=== PATIENT | male | born 1970 | race Caucasian/White ===

== ENCOUNTER 2017-10-24 11:29 | Outpatient (CLI) | payer OTHER ==
--- NOTE | 2017-10-24 17:34 | XRAY Report ---
RIGHT HAND, THREE VIEWS: 10/24/2017 HISTORY: Question wood foreign body right thenar eminence. Splinter removed, hand now infected. FINDINGS: Three views of the right hand are interpreted without comparisons. There is no fracture, malalignment, periosteal reaction or bone destruction. In the area of clinical suspicion between the first and second fingers thenar eminence, no radiopaque foreign body or subcutaneous air is seen. Mild soft tissue swelling is present. IMPRESSION: NO RADIOPAQUE FOREIGN BODY IS IDENTIFIED. SOFT TISSUE SWELLING WITHOUT OTHER FINDING RIGHT HAND. TD: 10/24/2017 15:58 JOSE
== END 2017-10-24 11:30 | disposition home or self-care (01) ==
LOC: DI 11:29
PROVIDERS: ATTEND Specialist
DX: S60.551A Superficial foreign body of right hand, initial encounter (principal); R22.31 Localized swelling, mass and lump, right upper limb

== ENCOUNTER 2018-04-14 10:02 | Outpatient (CLI) | payer OTHER ==
[2018-04-14 18:19] LABS: BASOPHILS # (AUTO) 0.1 10^3/uL (0.0-0.1); BASOPHILS % (AUTO) 0.5 %; EOSINOPHILS % (AUTO) 0.2 %; HGB - HEMOGLOBIN 14.6 g/dL (14.0-18.0); LYMPHOCYTES # (AUTO) 1.9 10^3/uL (1.5-3.5); LYMPHOCYTES % (AUTO) 17.8 %; MEAN CORPUSCULAR HEMOGLOBIN 29.6 pg (27.0-31.0); MEAN CORPUSCULAR HGB CONC 33.1 g/dL (32.0-36.0); MEAN CORPUSCULAR VOLUME 89.4 fL (80.0-94.0); MONOCYTES # (AUTO) 0.8 10^3/uL (0.0-1.0); MONOCYTES % (AUTO) 7.2 %; NEUTROPHILS # (AUTO) 8.1 10^3/uL (1.5-6.6); NEUTROPHILS % (AUTO) 74.3 %; PLT - PLATELET COUNT 379 10^3/uL (130-450); RED BLOOD COUNT 4.93 10^6/uL (4.70-6.10); RED CELL DISTRIBUTION WIDTH 14.5 % (12.0-15.0); WHITE BLOOD COUNT 10.9 x10^3/uL (4.8-10.8)
[2018-04-14 18:29] LABS: ALBUMIN 3.6 g/dL (3.2-5.5); ALBUMIN/GLOBULIN RATIO 1.1 (1.0-2.2); ALKALINE PHOSPHATASE 89 IU/L (42-121); ALT ALANINE AMINOTRANSFERASE 68 IU/L (10-60); AST ASPARTATE AMINOTRANSFERASE 28 IU/L (10-42); BUN - BLOOD UREA NITROGEN 16 mg/dL (6-20); CALCIUM 8.7 mg/dL (8.5-10.3); CARBON DIOXIDE - CO2 24 mmol/L (21-32); CHLORIDE 102 mmol/L (101-111); CHOL/HDL RATIO 5.4 (<5.0); CHOLESTEROL 199 mg/dL; GFR - MDRD 79 (>89); GLUCOSE 112 mg/dL (70-100); HDL CHOLESTEROL 37 mg/dL; LDL CHOLESTEROL,CALCULATED 140 mg/dL; LDL/HDL RATIO 3.8 (<3.6); SODIUM 137 mmol/L (135-145); TOTAL PROTEIN 6.9 g/dL (6.7-8.2); VLDL CHOLESTEROL 22 mg/dL
== END 2018-04-14 10:03 | disposition home or self-care (01) ==
LOC: LAB.F 10:02
PROVIDERS: ATTEND Internal Medicine
DX: R00.0 Tachycardia, unspecified (principal)
CPT/HCPCS: 36415; 80053; 80061; 83721; 84443; 85025

== ENCOUNTER 2018-04-17 08:51 | Outpatient (CLI) | payer OTHER ==
--- NOTE | 2018-04-17 14:34 | XRAY Report ---
Reason: TACHYCARDIA, DYSPNEA ON EXERTION, ABNORMAL EKG Procedure Date: 04/17/2018 Accession Number: [id number] / [id number] Procedure: XR - Chest 2 View X-Ray CPT Code: 59332 FULL RESULT: EXAM: CHEST RADIOGRAPHY EXAM DATE: 04/17/2018 09:12 AM. CLINICAL HISTORY: TACHYCARDIA, DYSPNEA ON EXERTION, ABNORMAL EKG. COMPARISON: None. TECHNIQUE: 2 views. FINDINGS: Lungs/Pleura: Vascular congestion. Diffuse minimal interstitial opacities. No large effusion. No gross pneumothorax. Mediastinum: Mild to moderate cardiomegaly. No mediastinal shift. Other: None. IMPRESSION: Possible minimal CHF. RADIA
== END 2018-04-17 08:52 | disposition home or self-care (01) ==
LOC: DI 08:51
PROVIDERS: ATTEND Internal Medicine
DX: R06.09 Other forms of dyspnea (principal); R00.0 Tachycardia, unspecified; R94.31 Abnormal electrocardiogram [ECG] [EKG]; I51.7 Cardiomegaly; I34.0 Nonrheumatic mitral (valve) insufficiency; I51.3 Intracardiac thrombosis, not elsewhere classified
CPT/HCPCS: 71046; 93306

== ENCOUNTER 2018-04-22 05:23 | Emergency (ER) | payer OTHER ==
--- NOTE | 2018-04-22 05:41 | ED Physician Documentation ---
PD HPI FOCAL NEURO - Stated complaint Stated Complaint: SLURRED SPEECH,NAUSEA - Chief complaint Chief Complaint: Neuro - History obtained from History obtained from: Patient, Family - History of Present Illness Timing - onset: Enter time (04:00), Today Timing - details: Abrupt onset Time of symptom onset unknown: Time of onset unknown (see below) Severity of deficit: Mild Weakness: No: Face, Arm, Hand, Leg, Foot, Right, Left, Other Numbness: No: Face, Arm, Hand, Leg, Foot, Right, Left, Other Associated symptoms: No: Headache, Nausea / vomiting, Seizure, Syncope, Fall, Head injury, Chest pain, Neck pain, Back pain, Fever Contributing factors: positive: Anticoagulated Baseline status: positive: A&OX3, ambulatory, indep Similar symptoms before: Has not had sx before Recently seen: Clinic - Additional information Additional information: went to bed approximately 8 PM last night (this was last known normal time). He woke up approximately 4 AM. There was no apparent reason for waking up at that time; he did not feel abnormal in any way. However, when his then noted he was awake and talked to him, patient and both noted patient had slurred speech. says she was able to understand him and that what he was saying made sense, but his speech was definitively slurred. 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 Patient had been having fatigue with mild exertion over past several weeks, and this led to w/u last week in outpatient setting that included a markedly abnormal echocardiogram (EF <20%, large LV mural thrombus). He was thus started on xarelto, carvedilol, and lisinopril (04/17; he had previously not been on any medications and had no significant medical history), and he has his first appointment with cardiology scheduled for 04/24. 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 denies: Generalized weakness, Focal weakness, Numbness, Confused, Altered mental status, Headache PD PAST MEDICAL HISTORY - Past Medical History Past Medical History: Yes Cardiovascular: Hypertension - Past Surgical History Past Surgical History: No - Present Medications Home Medications: Ambulatory Orders Medication Instructions Recorded Confirmed Carvedilol 1 tab PO BID 04/22/18 04/22/18 Lisinopril 1 tab PO DAILY 04/22/18 04/22/18 Rivaroxaban [Xarelto] 20 mg PO DAILY 04/22/18 04/22/18 - Living Situation Living Situation: reports: With spouse/s.o. 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, No motor deficit, No sensory deficit, Normal speech Eye Opening: Spontaneous Motor: Obeys Commands Verbal: Oriented GCS Score: 15 NIHSS - Level of Consciousness Level of consciousness: (0) Alert, Keenly responsive LOC Questions: (0) Answers both Q's correct LOC Commands: (0) Performs both correctly - Gaze Best Gaze: (0) Normal - Visual Visual: (0) No loss - Facial Palsy Facial Palsy: (0) Normal, symmetrical movement - Motor Arms (both separate) Motor Arm (right): (0) No drift Motor Arm (left): (0) No drift - Motor Legs (both separate) Motor Leg (right): (0) No drift Motor Leg (left): (0) No drift - Limb Ataxia Limb Ataxia: (0) Absent - Sensory Sensory: (0) Normal - Best Language Best Language: (0) No aphasia - Dysarthria Dysarthria: (0) Normal - Extinction and Inattention (formally neg Extinction and inattention: (0) No abnormality - Total Score/Results Total Score/Result: 0 Results - Vitals Vitals: Vital Signs - 24 hr 04/22/18 04/22/18 04/22/18 05:25 07:43 08:44 Temperature 36.3 C L Heart Rate 106 H 84 80 Respiratory 14 18 16 Rate Blood Pressure 132/98 H 109/73 104/77 O2 Saturation 98 96 97 Oxygen O2 Source Room air - EKG (time done) No standard instances Rate: Rate (enter#) (93) Rhythm: NSR, LAE [place]: Normal Intervals: Normal LA QRS: Normal Ischemia: Normal ST segments, Q waves (V3-V6, I, aVL) - Labs Labs: Laboratory Tests 04/22/18 04/22/18 04/22/18 05:43 05:43 05:43 WBC 9.7 RBC 4.92 Hgb 14.4 Hct 43.7 MCV 88.9 MCH 29.3 MCHC 32.9 RDW 14.6 Plt Count 372 MPV 8.9 Neut # (Auto) 6.8 H Lymph # (Auto) 2.1 Bent # (Auto) 0.6 Eos # (Auto) 0.1 Baso # (Auto) 0.1 Absolute Nucleated RBC 0.00 Nucleated RBC % 0.0 PT 21.3 H INR 1.9 H APTT 34.5 H Sodium 133 L Potassium 4.0 Chloride 100 L Carbon Dioxide 23 Anion Gap 10.0 BUN 16 Creatinine 1.0 Estimated GFR (MDRD) 79 L Glucose 116 H Calcium 8.9 Total Bilirubin 1.1 H AST 25 ALT 52 Alkaline Phosphatase 84 Troponin I Total Protein 6.9 Albumin 3.7 Globulin 3.2 Albumin/Globulin Ratio 1.2 Lipase 26 04/22/18 04/22/18 05:43 07:55 WBC RBC Hgb Hct MCV MCH MCHC RDW Plt Count MPV Neut # (Auto) Lymph # (Auto) Bent # (Auto) Eos # (Auto) Baso # (Auto) Absolute Nucleated RBC Nucleated RBC % PT INR APTT Sodium Potassium Chloride Carbon Dioxide Anion Gap BUN Creatinine Estimated GFR (MDRD) Glucose Calcium Total Bilirubin AST ALT Alkaline Phosphatase Troponin I 0.21 0.20 Total Protein Albumin Globulin Albumin/Globulin Ratio Lipase - Rads (name of study) CT head Radiology: Prelim report reviewed, See rad report chest xray Radiology: Prelim report reviewed, See rad report PD MEDICAL DECISION MAKING - ED course Complexity details: reviewed old records, reviewed results, re-evaluated patient, considered differential, d/w patient, d/w family Departure - Departure Disposition: 01 Home, Self Care Clinical Impression: TIA (transient ischemic attack) Condition: Good Instructions: ED Transient Ischemic Attack Follow-Up: Morales Cabral MD [Primary Care Provider] - Discharge Date/Time: 04/22/18 08:46
[2018-04-22 05:57] LABS: BASOPHILS # (AUTO) 0.1 10^3/uL (0.0-0.1); BASOPHILS % (AUTO) 1.4 %; EOSINOPHILS # (AUTO) 0.1 10^3/uL (0.0-0.7); EOSINOPHILS % (AUTO) 1.3 %; HGB - HEMOGLOBIN 14.4 g/dL (14.0-18.0); LYMPHOCYTES # (AUTO) 2.1 10^3/uL (1.5-3.5); MEAN CORPUSCULAR HEMOGLOBIN 29.3 pg (27.0-31.0); MEAN CORPUSCULAR HGB CONC 32.9 g/dL (32.0-36.0); MEAN CORPUSCULAR VOLUME 88.9 fL (80.0-94.0); MEAN PLATELET VOLUME 8.9 fL (7.4-11.4); MONOCYTES # (AUTO) 0.6 10^3/uL (0.0-1.0); MONOCYTES % (AUTO) 5.7 %; NEUTROPHILS # (AUTO) 6.8 10^3/uL (1.5-6.6); NEUTROPHILS % (AUTO) 69.6 %; PLT - PLATELET COUNT 372 10^3/uL (130-450); RED BLOOD COUNT 4.92 10^6/uL (4.70-6.10); RED CELL DISTRIBUTION WIDTH 14.6 % (12.0-15.0); WHITE BLOOD COUNT 9.7 x10^3/uL (4.8-10.8)
[2018-04-22 06:04] LABS: INR 1.9 (0.8-1.2); PT - PROTHROMBIN TIME 21.3 secs (9.9-12.6)
[2018-04-22 06:07] LABS: ALBUMIN 3.7 g/dL (3.2-5.5); ALBUMIN/GLOBULIN RATIO 1.2 (1.0-2.2); BILIRUBIN,TOTAL 1.1 mg/dL (0.2-1.0); CALCIUM 8.9 mg/dL (8.5-10.3); TOTAL PROTEIN 6.9 g/dL (6.7-8.2)
--- NOTE | 2018-04-22 06:29 | XRAY Report ---
Reason: chest pain Procedure Date: 04/22/2018 Accession Number: [id number] / [id number] Procedure: XR - Chest 1 View X-Ray CPT Code: 05572 FULL RESULT: EXAM: CHEST RADIOGRAPHY EXAM DATE: 04/22/2018 06:07 AM. CLINICAL HISTORY: Chest pain. COMPARISON: CHEST 2 VIEW 04/17/2018 9:12 AM. TECHNIQUE: 1 view. FINDINGS: Lungs/Pleura: Patchy right basilar airspace disease. No effusion or pneumothorax. Mediastinum: Cardiomegaly. Other: None. IMPRESSION: Cardiomegaly. Patchy right basilar infiltrate. RADIA
--- NOTE | 2018-04-22 06:35 | CT Report ---
Reason: slurred speech Procedure Date: 04/22/2018 Accession Number: [id number] / [id number] Procedure: CT - Head W/O CPT Code: FULL RESULT: EXAM: CT HEAD EXAM DATE: 04/22/2018 05:52 AM. CLINICAL HISTORY: Slurred speech. COMPARISON: None. TECHNIQUE: Multiaxial CT images were obtained from the foramen magnum to the vertex. Reformats: Sagittal and coronal. IV contrast: None. In accordance with CT protocol optimization, one or more of the following dose reduction techniques were utilized for this exam: automated exposure control, adjustment of mA and/or KV based on patient size, or use of iterative reconstructive technique. FINDINGS: Parenchyma: No intraparenchymal hemorrhage. No evidence of mass, midline shift, or CT findings of infarction. Whyte-white differentiation is distinct. Extraaxial Spaces: Normal for age. No subdural or epidural collections identified. Ventricles: Normal in size and position. Sinuses and Orbits: Imaged paranasal sinuses, orbits, and mastoids show no significant abnormality. Bones: No evidence of fracture or calvarial defect. Other: None. IMPRESSION: Normal head CT. RADIA
[2018-04-22 08:44] VITALS: BP 104/77
== END 2018-04-22 08:46 | disposition home or self-care (01) ==
LOC: ED 05:23
DX: G45.9 Transient cerebral ischemic attack, unspecified (principal); I10 Essential (primary) hypertension
CPT/HCPCS: 36415; 70450; 71045; 80053; 83690; 84484; 85025; 85610; 85730; 93005; 99284

== ENCOUNTER 2018-04-29 09:26 | Outpatient (CLI) | payer OTHER ==
[2018-04-29 18:40] LABS: CALCIUM 9.2 mg/dL (8.5-10.3); CREATININE 0.9 mg/dL (0.6-1.2)
== END 2018-04-29 09:27 | disposition home or self-care (01) ==
LOC: LAB.F 09:26
PROVIDERS: ATTEND Internal Medicine
DX: I42.8 Other cardiomyopathies (principal)
CPT/HCPCS: 36415; 80048

== ENCOUNTER 2018-11-04 11:33 | Outpatient (CLI) | payer OTHER ==
[2018-11-04 18:02] LABS: INR 2.9 (0.8-1.2); PT - PROTHROMBIN TIME 32.6 secs (9.9-12.6)
== END 2018-11-04 11:34 | disposition home or self-care (01) ==
LOC: LAB.F 11:33
PROVIDERS: ATTEND Emergency Medicine
DX: I48.91 Unspecified atrial fibrillation (principal)
CPT/HCPCS: 36415; 85610

== ENCOUNTER 2018-11-09 13:09 | Outpatient (CLI) | payer OTHER ==
[2018-11-09 18:11] LABS: INR 2.1 (0.8-1.2); PT - PROTHROMBIN TIME 23.6 secs (9.9-12.6)
== END 2018-11-09 13:10 | disposition home or self-care (01) ==
LOC: LAB.F 13:09
PROVIDERS: ATTEND Emergency Medicine
DX: I48.91 Unspecified atrial fibrillation (principal)
CPT/HCPCS: 36415; 85610

== ENCOUNTER 2018-11-16 11:49 | Outpatient (CLI) | payer OTHER ==
[2018-11-16 17:35] LABS: INR 2.1 (0.8-1.2)
== END 2018-11-16 11:50 | disposition home or self-care (01) ==
LOC: LAB.S 11:49
PROVIDERS: ATTEND Emergency Medicine
DX: I48.91 Unspecified atrial fibrillation (principal)
CPT/HCPCS: 36415; 85610

== ENCOUNTER 2018-11-30 10:43 | Outpatient (CLI) | payer OTHER | END 2018-11-30 10:44 | disposition home or self-care (01) | LOC: LAB.S 10:43 | PROVIDERS: ATTEND Emergency Medicine | DX: I48.91 Unspecified atrial fibrillation (principal) | CPT/HCPCS: 85610 ==

== ENCOUNTER 2018-12-02 10:35 | Outpatient (CLI) | payer OTHER ==
[2018-12-02 17:17] LABS: INR 1.8 (0.8-1.2); PT - PROTHROMBIN TIME 20.5 secs (9.9-12.6)
== END 2018-12-02 10:36 | disposition home or self-care (01) ==
LOC: LAB.S 10:35
PROVIDERS: ATTEND Emergency Medicine
DX: I48.91 Unspecified atrial fibrillation (principal)
CPT/HCPCS: 36415; 85610

== ENCOUNTER 2018-12-23 10:12 | Outpatient (CLI) | payer OTHER ==
[2018-12-23 17:18] LABS: INR 2.1 (0.8-1.2); PT - PROTHROMBIN TIME 23.8 secs (9.9-12.6)
== END 2018-12-23 10:13 | disposition home or self-care (01) ==
LOC: LAB.S 10:12
PROVIDERS: ATTEND Emergency Medicine
DX: I48.91 Unspecified atrial fibrillation (principal)
CPT/HCPCS: 36415; 85610

== ENCOUNTER 2019-01-13 09:40 | Outpatient (CLI) | payer OTHER ==
[2019-01-13 18:37] LABS: INR 1.9 (0.8-1.2); PT - PROTHROMBIN TIME 21.4 secs (9.9-12.6)
== END 2019-01-13 09:41 | disposition home or self-care (01) ==
LOC: LAB.S 09:40
PROVIDERS: ATTEND Emergency Medicine
DX: I48.91 Unspecified atrial fibrillation (principal)
CPT/HCPCS: 36415; 85610

== ENCOUNTER 2019-01-27 10:44 | Outpatient (CLI) | payer OTHER ==
[2019-01-27 17:19] LABS: INR 1.8 (0.8-1.2); PT - PROTHROMBIN TIME 20.4 secs (9.9-12.6)
== END 2019-01-27 10:45 | disposition home or self-care (01) ==
LOC: LAB.S 10:44
PROVIDERS: ATTEND Emergency Medicine
DX: I48.91 Unspecified atrial fibrillation (principal)
CPT/HCPCS: 36415; 85610

== ENCOUNTER 2019-02-08 11:06 | Outpatient (CLI) | payer OTHER ==
[2019-02-08 18:59] LABS: INR 2.6 (0.8-1.2); PT - PROTHROMBIN TIME 28.4 secs (9.9-12.6)
== END 2019-02-08 11:07 | disposition home or self-care (01) ==
LOC: LAB.S 11:06
PROVIDERS: ATTEND Emergency Medicine
DX: I48.91 Unspecified atrial fibrillation (principal)
CPT/HCPCS: 36415; 85610

== ENCOUNTER 2019-03-01 14:02 | Outpatient (CLI) | payer OTHER ==
[2019-03-01 17:32] LABS: INR 2.4 (0.8-1.2); PT - PROTHROMBIN TIME 25.8 secs (9.9-12.6)
== END 2019-03-01 14:03 | disposition home or self-care (01) ==
LOC: LAB.S 14:02
PROVIDERS: ATTEND Emergency Medicine
DX: I48.91 Unspecified atrial fibrillation (principal)
CPT/HCPCS: 36415; 85610

== ENCOUNTER 2019-03-29 14:07 | Outpatient (CLI) | payer OTHER ==
[2019-03-29 17:11] LABS: INR 2.1 (0.8-1.2)
== END 2019-03-29 14:08 | disposition home or self-care (01) ==
LOC: LAB.S 14:07
PROVIDERS: ATTEND Emergency Medicine
DX: I48.91 Unspecified atrial fibrillation (principal)
CPT/HCPCS: 36415; 85610

== ENCOUNTER 2019-05-10 10:38 | Outpatient (CLI) | payer OTHER ==
[2019-05-10 17:54] LABS: PT - PROTHROMBIN TIME 21.4 secs (9.9-12.6)
== END 2019-05-10 10:39 | disposition home or self-care (01) ==
LOC: LAB.S 10:38
PROVIDERS: ATTEND Emergency Medicine
DX: I48.91 Unspecified atrial fibrillation (principal)
CPT/HCPCS: 36415; 85610

== ENCOUNTER 2019-07-06 10:08 | Outpatient (CLI) | payer OTHER ==
[2019-07-06 17:21] LABS: INR 1.6 (0.8-1.2); PT - PROTHROMBIN TIME 17.3 secs (9.9-12.6)
== END 2019-07-06 10:09 | disposition home or self-care (01) ==
LOC: LAB.S 10:08
PROVIDERS: ATTEND Emergency Medicine
DX: I48.91 Unspecified atrial fibrillation (principal)
CPT/HCPCS: 36415; 85610

== ENCOUNTER 2019-07-13 11:02 | Outpatient (CLI) | payer OTHER ==
[2019-07-13 17:19] LABS: INR 1.6 (0.8-1.2); PT - PROTHROMBIN TIME 17.8 secs (9.9-12.6)
== END 2019-07-13 11:03 | disposition home or self-care (01) ==
LOC: LAB.S 11:02
PROVIDERS: ATTEND Emergency Medicine
DX: I48.91 Unspecified atrial fibrillation (principal)
CPT/HCPCS: 36415; 85610

== ENCOUNTER 2019-08-25 11:52 | Outpatient (CLI) | payer OTHER ==
[2019-08-25 16:40] LABS: INR 1.4 (0.8-1.2); PT - PROTHROMBIN TIME 15.8 secs (9.9-12.6)
== END 2019-08-25 23:59 | disposition home or self-care (01) ==
LOC: LAB.WCP 11:52
PROVIDERS: ATTEND Emergency Medicine
DX: I48.91 Unspecified atrial fibrillation (principal)
CPT/HCPCS: 36415; 85610

== ENCOUNTER 2019-09-01 10:50 | Outpatient (CLI) | payer OTHER ==
[2019-09-01 12:30] LABS: PT - PROTHROMBIN TIME 21.7 secs (9.9-12.6)
== END 2019-09-01 23:59 | disposition home or self-care (01) ==
LOC: LAB.WCP 10:50
PROVIDERS: ATTEND Emergency Medicine
DX: I48.91 Unspecified atrial fibrillation (principal)
CPT/HCPCS: 36415; 85610

== ENCOUNTER 2019-09-20 08:00 | Outpatient (CLI) | payer OTHER ==
[2019-09-20 14:27] LABS: INR 2.5 (0.8-1.2); PT - PROTHROMBIN TIME 26.7 secs (9.9-12.6)
== END 2019-09-20 23:59 | disposition home or self-care (01) ==
LOC: LAB.WCP 08:00
PROVIDERS: ATTEND Emergency Medicine
DX: I48.91 Unspecified atrial fibrillation (principal)
CPT/HCPCS: 36415; 85610

== ENCOUNTER 2019-11-29 07:33 | Outpatient (CLI) | payer OTHER ==
[2019-11-29 16:05] LABS: INR 1.9 (0.8-1.2); PT - PROTHROMBIN TIME 21.1 secs (9.9-12.6)
== END 2019-11-29 07:34 | disposition home or self-care (01) ==
LOC: LAB.S 07:33
PROVIDERS: ATTEND Emergency Medicine
DX: I48.91 Unspecified atrial fibrillation (principal)
CPT/HCPCS: 36415; 85610

== ENCOUNTER 2019-12-10 08:22 | Outpatient (CLI) | payer OTHER ==
[2019-12-10 15:36] LABS: INR 2.1 (0.8-1.2); PT - PROTHROMBIN TIME 22.5 secs (9.9-12.6)
== END 2019-12-10 08:23 | disposition home or self-care (01) ==
LOC: LAB.S 08:22
PROVIDERS: ATTEND Emergency Medicine
DX: I48.91 Unspecified atrial fibrillation (principal)
CPT/HCPCS: 36415; 85610

== ENCOUNTER 2019-12-31 10:10 | Outpatient (CLI) | payer OTHER ==
[2019-12-31 15:22] LABS: INR 2.7 (0.8-1.2); PT - PROTHROMBIN TIME 28.8 secs (9.9-12.6)
== END 2019-12-31 10:11 | disposition home or self-care (01) ==
LOC: LAB.S 10:10
PROVIDERS: ATTEND Emergency Medicine
DX: I48.91 Unspecified atrial fibrillation (principal)
CPT/HCPCS: 85610

== ENCOUNTER 2020-03-10 11:23 | Outpatient (CLI) | payer OTHER ==
[2020-03-10 15:57] LABS: INR 2.6 (0.8-1.2); PT - PROTHROMBIN TIME 26.9 secs (9.9-12.6)
== END 2020-03-10 11:24 | disposition home or self-care (01) ==
LOC: LAB.S 11:23
PROVIDERS: ATTEND Emergency Medicine
DX: I48.91 Unspecified atrial fibrillation (principal)
CPT/HCPCS: 36415; 85610

== ENCOUNTER 2020-05-05 10:28 | Outpatient (CLI) | payer OTHER ==
[2020-05-05 16:38] LABS: INR 1.9 (0.8-1.2); PT - PROTHROMBIN TIME 19.9 secs (9.9-12.6)
== END 2020-05-05 10:29 | disposition home or self-care (01) ==
LOC: LAB.S 10:28
PROVIDERS: ATTEND Emergency Medicine
DX: I48.91 Unspecified atrial fibrillation (principal)
CPT/HCPCS: 36415; 85610

== ENCOUNTER 2020-05-15 10:39 | Outpatient (CLI) | payer OTHER ==
[2020-05-15 15:09] LABS: INR 2.1 (0.8-1.2); PT - PROTHROMBIN TIME 22.5 secs (9.9-12.6)
== END 2020-05-15 10:40 | disposition home or self-care (01) ==
LOC: LAB.S 10:39
PROVIDERS: ATTEND Emergency Medicine
DX: I48.91 Unspecified atrial fibrillation (principal)
CPT/HCPCS: 85610

== ENCOUNTER 2020-06-05 10:00 | Outpatient (CLI) | payer OTHER ==
[2020-06-05 15:36] LABS: PT - PROTHROMBIN TIME 21.7 secs (9.9-12.6)
== END 2020-06-05 10:01 | disposition home or self-care (01) ==
LOC: LAB.S 10:00
PROVIDERS: ATTEND Emergency Medicine
DX: I48.91 Unspecified atrial fibrillation (principal)
CPT/HCPCS: 36415; 85610

== ENCOUNTER 2020-06-23 11:22 | Outpatient (CLI) | payer OTHER ==
[2020-06-23 15:58] LABS: INR 2.6 (0.8-1.2)
== END 2020-06-23 11:23 | disposition home or self-care (01) ==
LOC: LAB.S 11:22
PROVIDERS: ATTEND Emergency Medicine
DX: I48.91 Unspecified atrial fibrillation (principal)
CPT/HCPCS: 36415; 85610

== ENCOUNTER 2020-07-24 11:17 | Outpatient (CLI) | payer OTHER ==
[2020-07-24 14:57] LABS: INR 1.9 (0.8-1.2); PT - PROTHROMBIN TIME 20.1 secs (9.9-12.6)
== END 2020-07-24 11:18 | disposition home or self-care (01) ==
LOC: LAB.S 11:17
PROVIDERS: ATTEND Emergency Medicine
DX: I48.91 Unspecified atrial fibrillation (principal)
CPT/HCPCS: 36415; 85610

== ENCOUNTER 2020-08-07 11:34 | Outpatient (CLI) | payer OTHER ==
[2020-08-07 14:14] LABS: PT - PROTHROMBIN TIME 31.4 secs (9.9-12.6)
== END 2020-08-07 11:35 | disposition home or self-care (01) ==
LOC: LAB.S 11:34
PROVIDERS: ATTEND Emergency Medicine
DX: I48.91 Unspecified atrial fibrillation (principal)
CPT/HCPCS: 36415; 85610

== ENCOUNTER 2020-08-28 09:38 | Outpatient (CLI) | payer OTHER ==
[2020-08-28 14:41] LABS: INR 2.5 (0.8-1.2); PT - PROTHROMBIN TIME 26.6 secs (9.9-12.6)
== END 2020-08-28 09:39 | disposition home or self-care (01) ==
LOC: LAB.S 09:38
PROVIDERS: ATTEND Emergency Medicine
DX: I48.91 Unspecified atrial fibrillation (principal)
CPT/HCPCS: 36415; 85610

== ENCOUNTER 2020-09-26 10:44 | Outpatient (CLI) | payer OTHER ==
[2020-09-26 15:06] LABS: INR 2.8 (0.8-1.2); PT - PROTHROMBIN TIME 29.3 secs (9.9-12.6)
== END 2020-09-26 10:45 | disposition home or self-care (01) ==
LOC: LAB.S 10:44
PROVIDERS: ATTEND Internal Medicine Clinical Cardiac Electrophysiology
DX: I48.91 Unspecified atrial fibrillation (principal)
CPT/HCPCS: 36415; 85610

== ENCOUNTER 2020-11-07 08:36 | Outpatient (CLI) | payer OTHER ==
[2020-11-07 14:34] LABS: PT - PROTHROMBIN TIME 31.2 secs (9.9-12.6)
== END 2020-11-07 08:37 | disposition home or self-care (01) ==
LOC: LAB.S 08:36
PROVIDERS: ATTEND Internal Medicine Clinical Cardiac Electrophysiology
DX: I48.91 Unspecified atrial fibrillation (principal)
CPT/HCPCS: 36415; 85610

== ENCOUNTER 2021-01-02 09:21 | Outpatient (CLI) | payer OTHER ==
[2021-01-02 14:30] LABS: INR 2.7 (0.8-1.2); PT - PROTHROMBIN TIME 28.3 secs (9.9-12.6)
== END 2021-01-02 09:22 | disposition home or self-care (01) ==
LOC: LAB.S 09:21
PROVIDERS: ATTEND Internal Medicine Clinical Cardiac Electrophysiology
DX: I48.91 Unspecified atrial fibrillation (principal)
CPT/HCPCS: 36415; 85610

== ENCOUNTER 2021-03-13 10:52 | Outpatient (CLI) | payer OTHER ==
[2021-03-13 14:28] LABS: INR 3.2 (0.8-1.2); PT - PROTHROMBIN TIME 35.6 secs (9.9-12.6)
== END 2021-03-13 10:53 | disposition home or self-care (01) ==
LOC: LAB.S 10:52
PROVIDERS: ATTEND Internal Medicine Clinical Cardiac Electrophysiology
DX: I48.91 Unspecified atrial fibrillation (principal)
CPT/HCPCS: 36415; 85610

== ENCOUNTER 2021-03-27 11:06 | Outpatient (CLI) | payer OTHER ==
[2021-03-27 15:33] LABS: INR 3.2 (0.8-1.2); PT - PROTHROMBIN TIME 35.8 secs (9.9-12.6)
== END 2021-03-27 11:07 | disposition home or self-care (01) ==
LOC: LAB.S 11:06
PROVIDERS: ATTEND Internal Medicine Clinical Cardiac Electrophysiology
DX: I48.91 Unspecified atrial fibrillation (principal)
CPT/HCPCS: 36415; 85610

== ENCOUNTER 2021-04-06 09:28 | Outpatient (CLI) | payer OTHER ==
[2021-04-06 15:01] LABS: INR 2.1 (0.8-1.2); PT - PROTHROMBIN TIME 23.7 secs (9.9-12.6)
== END 2021-04-06 09:29 | disposition home or self-care (01) ==
LOC: LAB.S 09:28
PROVIDERS: ATTEND Internal Medicine Clinical Cardiac Electrophysiology
DX: I48.91 Unspecified atrial fibrillation (principal)
CPT/HCPCS: 36415; 85610

== ENCOUNTER 2021-04-17 10:21 | Outpatient (CLI) | payer OTHER ==
[2021-04-17 15:06] LABS: INR 2.1 (0.8-1.2); PT - PROTHROMBIN TIME 23.6 secs (9.9-12.6)
== END 2021-04-17 10:22 | disposition home or self-care (01) ==
LOC: LAB.S 10:21
PROVIDERS: ATTEND Internal Medicine Clinical Cardiac Electrophysiology
DX: I48.91 Unspecified atrial fibrillation (principal)
CPT/HCPCS: 36415; 85610

== ENCOUNTER 2021-05-01 10:49 | Outpatient (CLI) | payer OTHER ==
[2021-05-01 14:29] LABS: INR 2.5 (0.8-1.2); PT - PROTHROMBIN TIME 27.4 secs (9.9-12.6)
== END 2021-05-01 10:50 | disposition home or self-care (01) ==
LOC: LAB.S 10:49
PROVIDERS: ATTEND Internal Medicine Clinical Cardiac Electrophysiology
DX: I48.91 Unspecified atrial fibrillation (principal)
CPT/HCPCS: 36415; 85610

== ENCOUNTER 2021-05-29 11:06 | Outpatient (CLI) | payer OTHER ==
[2021-05-29 14:47] LABS: INR 1.9 (0.8-1.2)
== END 2021-05-29 11:07 | disposition home or self-care (01) ==
LOC: LAB.S 11:06
PROVIDERS: ATTEND Internal Medicine Clinical Cardiac Electrophysiology
DX: I48.91 Unspecified atrial fibrillation (principal)
CPT/HCPCS: 36415; 85610

== ENCOUNTER 2021-06-12 10:35 | Outpatient (CLI) | payer OTHER ==
[2021-06-12 15:13] LABS: INR 2.1 (0.8-1.2); PT - PROTHROMBIN TIME 23.9 secs (9.9-12.6)
== END 2021-06-12 10:36 | disposition home or self-care (01) ==
LOC: LAB.S 10:35
PROVIDERS: ATTEND Internal Medicine Clinical Cardiac Electrophysiology
DX: I48.91 Unspecified atrial fibrillation (principal)
CPT/HCPCS: 36415; 85610

== ENCOUNTER 2021-07-03 11:06 | Outpatient (CLI) | payer OTHER ==
[2021-07-03 14:25] LABS: INR 1.8 (0.8-1.2); PT - PROTHROMBIN TIME 20.6 secs (9.9-12.6)
== END 2021-07-03 11:07 | disposition home or self-care (01) ==
LOC: LAB.S 11:06
PROVIDERS: ATTEND Internal Medicine Clinical Cardiac Electrophysiology
DX: I48.91 Unspecified atrial fibrillation (principal)
CPT/HCPCS: 36415; 85610

== ENCOUNTER 2021-07-16 10:57 | Outpatient (CLI) | payer OTHER ==
[2021-07-16 14:41] LABS: INR 3.6 (0.8-1.2); PT - PROTHROMBIN TIME 40.4 secs (9.9-12.6)
== END 2021-07-16 10:58 | disposition home or self-care (01) ==
LOC: LAB.S 10:57
PROVIDERS: ATTEND Internal Medicine Clinical Cardiac Electrophysiology
DX: I48.91 Unspecified atrial fibrillation (principal)
CPT/HCPCS: 36415; 85610

== ENCOUNTER 2021-07-23 11:12 | Outpatient (CLI) | payer OTHER ==
[2021-07-23 15:05] LABS: PT - PROTHROMBIN TIME 22.8 secs (9.9-12.6)
== END 2021-07-23 11:13 | disposition home or self-care (01) ==
LOC: LAB.S 11:12
PROVIDERS: ATTEND Internal Medicine Clinical Cardiac Electrophysiology
DX: I48.91 Unspecified atrial fibrillation (principal)
CPT/HCPCS: 36415; 85610

== ENCOUNTER 2021-08-06 10:23 | Outpatient (CLI) | payer OTHER ==
[2021-08-06 15:36] LABS: INR 2.7 (0.8-1.2); PT - PROTHROMBIN TIME 29.7 secs (9.9-12.6)
== END 2021-08-06 10:24 | disposition home or self-care (01) ==
LOC: LAB.S 10:23
PROVIDERS: ATTEND Internal Medicine Clinical Cardiac Electrophysiology
DX: I48.91 Unspecified atrial fibrillation (principal)
CPT/HCPCS: 36415; 85610

== ENCOUNTER 2021-08-27 10:46 | Outpatient (CLI) | payer OTHER ==
[2021-08-27 15:30] LABS: INR 2.1 (0.8-1.2); PT - PROTHROMBIN TIME 23.7 secs (9.9-12.6)
== END 2021-08-27 10:47 | disposition home or self-care (01) ==
LOC: LAB.S 10:46
PROVIDERS: ATTEND Internal Medicine Clinical Cardiac Electrophysiology
DX: I48.91 Unspecified atrial fibrillation (principal)
CPT/HCPCS: 36415; 85610

== ENCOUNTER 2021-09-24 09:57 | Outpatient (CLI) | payer OTHER ==
[2021-09-24 14:19] LABS: INR 1.8 (0.8-1.2)
== END 2021-09-24 09:58 | disposition home or self-care (01) ==
LOC: LAB.S 09:57
PROVIDERS: ATTEND Internal Medicine Clinical Cardiac Electrophysiology
DX: I48.91 Unspecified atrial fibrillation (principal)
CPT/HCPCS: 36415; 85610

== ENCOUNTER 2021-10-08 11:58 | Outpatient (CLI) | payer OTHER ==
[2021-10-08 15:30] LABS: INR 2.4 (0.8-1.2); PT - PROTHROMBIN TIME 27.1 secs (9.9-12.6)
== END 2021-10-08 11:59 | disposition home or self-care (01) ==
LOC: LAB.S 11:58
PROVIDERS: ATTEND Internal Medicine Clinical Cardiac Electrophysiology
DX: I48.91 Unspecified atrial fibrillation (principal)
CPT/HCPCS: 36415; 85610

== ENCOUNTER 2021-11-21 09:36 | Outpatient (CLI) | payer OTHER ==
[2021-11-21 14:26] LABS: INR 2.4 (0.8-1.2); PT - PROTHROMBIN TIME 26.3 secs (9.9-12.6)
== END 2021-11-21 09:37 | disposition home or self-care (01) ==
LOC: LAB.S 09:36
PROVIDERS: ATTEND Internal Medicine Clinical Cardiac Electrophysiology
DX: I48.91 Unspecified atrial fibrillation (principal)
CPT/HCPCS: 36415; 85610

== ENCOUNTER 2021-12-12 09:28 | Outpatient (CLI) | payer OTHER ==
[2021-12-12 15:15] LABS: INR 2.9 (0.8-1.2); PT - PROTHROMBIN TIME 31.9 secs (9.9-12.6)
== END 2021-12-12 09:29 | disposition home or self-care (01) ==
LOC: LAB.S 09:28
PROVIDERS: ATTEND Internal Medicine Clinical Cardiac Electrophysiology
DX: I48.91 Unspecified atrial fibrillation (principal)
CPT/HCPCS: 36415; 36416; 85610

== ENCOUNTER 2022-02-20 10:38 | Outpatient (CLI) | payer OTHER ==
[2022-02-20 16:20] LABS: INR 2.3 (0.8-1.2); PT - PROTHROMBIN TIME 24.5 secs (9.9-12.6)
== END 2022-02-20 10:39 | disposition home or self-care (01) ==
LOC: LAB.S 10:38
PROVIDERS: ATTEND Internal Medicine Clinical Cardiac Electrophysiology
DX: I48.91 Unspecified atrial fibrillation (principal)
CPT/HCPCS: 36415; 36416; 85610

== ENCOUNTER 2022-04-16 09:57 | Outpatient (CLI) | payer OTHER ==
[2022-04-16 15:37] LABS: INR 3.4 (0.8-1.2); PT - PROTHROMBIN TIME 35.2 secs (9.9-12.6)
== END 2022-04-16 09:58 | disposition home or self-care (01) ==
LOC: LAB.S 09:57
PROVIDERS: ATTEND Internal Medicine Clinical Cardiac Electrophysiology
DX: I48.91 Unspecified atrial fibrillation (principal)
CPT/HCPCS: 36415; 85610

== ENCOUNTER 2022-05-01 11:23 | Outpatient (CLI) | payer OTHER ==
[2022-05-01 14:34] LABS: INR 2.4 (0.8-1.2); PT - PROTHROMBIN TIME 25.3 secs (9.9-12.6)
== END 2022-05-01 11:24 | disposition home or self-care (01) ==
LOC: LAB.S 11:23
PROVIDERS: ATTEND Internal Medicine Clinical Cardiac Electrophysiology
DX: I48.91 Unspecified atrial fibrillation (principal)
CPT/HCPCS: 36415; 36416; 85610

== ENCOUNTER 2022-05-22 09:17 | Outpatient (CLI) | payer OTHER ==
[2022-05-22 15:58] LABS: INR 2.7 (0.8-1.2); PT - PROTHROMBIN TIME 28.2 secs (9.9-12.6)
== END 2022-05-22 09:18 | disposition home or self-care (01) ==
LOC: LAB.S 09:17
PROVIDERS: ATTEND Internal Medicine Clinical Cardiac Electrophysiology
DX: I48.91 Unspecified atrial fibrillation (principal)
CPT/HCPCS: 36415; 85610

== ENCOUNTER 2022-06-19 10:01 | Outpatient (CLI) | payer OTHER ==
[2022-06-19 15:28] LABS: INR 2.3 (0.8-1.2); PT - PROTHROMBIN TIME 24.4 secs (9.9-12.6)
== END 2022-06-19 10:02 | disposition home or self-care (01) ==
LOC: LAB.S 10:01
PROVIDERS: ATTEND Internal Medicine Clinical Cardiac Electrophysiology
DX: I48.91 Unspecified atrial fibrillation (principal)
CPT/HCPCS: 36415; 85610

== ENCOUNTER 2022-07-04 10:05 | Outpatient (CLI) | payer OTHER ==
[2022-07-04 15:08] LABS: PT - PROTHROMBIN TIME 31.6 secs (9.9-12.6)
== END 2022-07-04 10:06 | disposition home or self-care (01) ==
LOC: LAB.S 10:05
PROVIDERS: ATTEND Internal Medicine Clinical Cardiac Electrophysiology
DX: I48.91 Unspecified atrial fibrillation (principal)
CPT/HCPCS: 36415; 85610

== ENCOUNTER 2022-07-25 10:42 | Outpatient (CLI) | payer OTHER ==
[2022-07-25 14:18] LABS: INR 2.7 (0.8-1.2); PT - PROTHROMBIN TIME 28.8 secs (9.9-12.6)
== END 2022-07-25 10:43 | disposition home or self-care (01) ==
LOC: LAB.S 10:42
PROVIDERS: ATTEND Internal Medicine Clinical Cardiac Electrophysiology
DX: I48.91 Unspecified atrial fibrillation (principal)
CPT/HCPCS: 36415; 85610

== ENCOUNTER 2022-08-22 09:27 | Outpatient (CLI) | payer OTHER ==
[2022-08-22 14:18] LABS: INR 2.8 (0.8-1.2); PT - PROTHROMBIN TIME 29.1 secs (9.9-12.6)
== END 2022-08-22 09:28 | disposition home or self-care (01) ==
LOC: LAB.S 09:27
PROVIDERS: ATTEND Internal Medicine Clinical Cardiac Electrophysiology
DX: I48.91 Unspecified atrial fibrillation (principal)
CPT/HCPCS: 36415; 85610

== ENCOUNTER 2022-09-19 09:37 | Outpatient (CLI) | payer OTHER ==
[2022-09-19 14:34] LABS: INR 2.7 (0.8-1.2)
== END 2022-09-19 09:38 | disposition home or self-care (01) ==
LOC: LAB.S 09:37
PROVIDERS: ATTEND Internal Medicine Clinical Cardiac Electrophysiology
DX: I48.91 Unspecified atrial fibrillation (principal)
CPT/HCPCS: 36415; 85610

== ENCOUNTER 2022-11-14 09:42 | Outpatient (CLI) | payer OTHER ==
[2022-11-14 14:41] LABS: INR 2.1 (0.8-1.2); PT - PROTHROMBIN TIME 22.3 secs (9.9-12.6)
== END 2022-11-14 09:43 | disposition home or self-care (01) ==
LOC: LAB.S 09:42
PROVIDERS: ATTEND Internal Medicine Clinical Cardiac Electrophysiology
DX: I48.91 Unspecified atrial fibrillation (principal)
CPT/HCPCS: 36415; 85610

== ENCOUNTER 2022-11-28 10:52 | Outpatient (CLI) | payer OTHER ==
[2022-11-28 14:29] LABS: INR 2.1 (0.8-1.2); PT - PROTHROMBIN TIME 22.3 secs (9.9-12.6)
== END 2022-11-28 10:53 | disposition home or self-care (01) ==
LOC: LAB.S 10:52
PROVIDERS: ATTEND Internal Medicine Clinical Cardiac Electrophysiology
DX: I48.91 Unspecified atrial fibrillation (principal)
CPT/HCPCS: 36415; 85610

== ENCOUNTER 2022-12-19 10:19 | Outpatient (CLI) | payer OTHER ==
[2022-12-19 15:14] LABS: PT - PROTHROMBIN TIME 30.2 secs (9.9-12.6)
== END 2022-12-19 10:20 | disposition home or self-care (01) ==
LOC: LAB.S 10:19
PROVIDERS: ATTEND Internal Medicine Clinical Cardiac Electrophysiology
DX: I48.91 Unspecified atrial fibrillation (principal)
CPT/HCPCS: 36415; 85610

== ENCOUNTER 2022-12-25 11:06 | Outpatient (CLI) | payer OTHER ==
[2022-12-25 15:20] LABS: INR 2.6 (0.8-1.2); PT - PROTHROMBIN TIME 27.7 secs (9.9-12.6)
== END 2022-12-25 11:07 | disposition home or self-care (01) ==
LOC: LAB.S 11:06
PROVIDERS: ATTEND Internal Medicine Clinical Cardiac Electrophysiology
DX: I48.91 Unspecified atrial fibrillation (principal)
CPT/HCPCS: 36415; 85610

== ENCOUNTER 2023-01-08 12:39 | Outpatient (CLI) | payer OTHER ==
[2023-01-08 14:27] LABS: INR 2.4 (0.8-1.2)
== END 2023-01-08 12:40 | disposition home or self-care (01) ==
LOC: LAB.S 12:39
PROVIDERS: ATTEND Internal Medicine Clinical Cardiac Electrophysiology
DX: I48.91 Unspecified atrial fibrillation (principal)
CPT/HCPCS: 36415; 85610

== ENCOUNTER 2023-01-29 10:36 | Outpatient (CLI) | payer OTHER ==
[2023-01-29 15:48] LABS: INR 3.5 (0.8-1.2); PT - PROTHROMBIN TIME 35.7 secs (9.9-12.6)
== END 2023-01-29 10:37 | disposition home or self-care (01) ==
LOC: LAB.S 10:36
PROVIDERS: ATTEND Internal Medicine Clinical Cardiac Electrophysiology
DX: I48.91 Unspecified atrial fibrillation (principal)
CPT/HCPCS: 36415; 85610

== ENCOUNTER 2023-02-18 10:11 | Outpatient (CLI) | payer OTHER ==
[2023-02-18 14:59] LABS: INR 2.3 (0.8-1.2); PT - PROTHROMBIN TIME 24.3 secs (9.9-12.6)
== END 2023-02-18 10:12 | disposition home or self-care (01) ==
LOC: LAB.S 10:11
PROVIDERS: ATTEND Internal Medicine Clinical Cardiac Electrophysiology
DX: I48.91 Unspecified atrial fibrillation (principal)
CPT/HCPCS: 36415; 85610

== ENCOUNTER 2023-03-11 10:02 | Outpatient (CLI) | payer OTHER ==
[2023-03-11 14:44] LABS: PT - PROTHROMBIN TIME 21.4 secs (9.9-12.6)
== END 2023-03-11 10:03 | disposition home or self-care (01) ==
LOC: LAB.S 10:02
PROVIDERS: ATTEND Internal Medicine Clinical Cardiac Electrophysiology
DX: I48.91 Unspecified atrial fibrillation (principal)
CPT/HCPCS: 36415; 85610

== ENCOUNTER 2023-03-31 11:49 | Outpatient (CLI) | payer OTHER ==
[2023-03-31 15:22] LABS: INR 3.2 (0.8-1.2)
== END 2023-03-31 11:50 | disposition home or self-care (01) ==
LOC: LAB.S 11:49
PROVIDERS: ATTEND Registered Nurse
DX: I48.91 Unspecified atrial fibrillation (principal)
CPT/HCPCS: 36415; 36416; 85610

== ENCOUNTER 2023-04-08 12:44 | Outpatient (CLI) | payer OTHER ==
[2023-04-08 16:09] LABS: INR 1.8 (0.8-1.2); PT - PROTHROMBIN TIME 19.2 secs (9.9-12.6)
== END 2023-04-08 12:45 | disposition home or self-care (01) ==
LOC: LAB.S 12:44
PROVIDERS: ATTEND Internal Medicine Clinical Cardiac Electrophysiology
DX: I48.91 Unspecified atrial fibrillation (principal)
CPT/HCPCS: 36415; 85610

== ENCOUNTER 2023-04-18 11:21 | Outpatient (CLI) | payer OTHER ==
[2023-04-18 15:51] LABS: INR 2.5 (0.8-1.2); PT - PROTHROMBIN TIME 25.2 secs (9.9-12.6)
== END 2023-04-18 11:22 | disposition home or self-care (01) ==
LOC: LAB.S 11:21
PROVIDERS: ATTEND Internal Medicine Clinical Cardiac Electrophysiology
DX: I48.91 Unspecified atrial fibrillation (principal)
CPT/HCPCS: 36415; 85610

== ENCOUNTER 2023-05-01 11:38 | Outpatient (CLI) | payer OTHER ==
[2023-05-01 15:28] LABS: INR 3.2 (0.8-1.2); PT - PROTHROMBIN TIME 32.7 secs (9.9-12.6)
== END 2023-05-01 11:39 | disposition home or self-care (01) ==
LOC: LAB.S 11:38
PROVIDERS: ATTEND Internal Medicine Clinical Cardiac Electrophysiology
DX: I48.91 Unspecified atrial fibrillation (principal)
CPT/HCPCS: 36415; 85610

== ENCOUNTER 2023-05-15 12:00 | Outpatient (CLI) | payer OTHER ==
[2023-05-15 14:58] LABS: INR 2.3 (0.8-1.2); PT - PROTHROMBIN TIME 24.8 secs (9.9-12.6)
== END 2023-05-15 12:01 | disposition home or self-care (01) ==
LOC: LAB.S 12:00
PROVIDERS: ATTEND Internal Medicine Clinical Cardiac Electrophysiology
DX: I48.91 Unspecified atrial fibrillation (principal)
CPT/HCPCS: 36415; 36416; 85610

== ENCOUNTER 2023-07-03 12:42 | Outpatient (CLI) | payer SELFPAY ==
[2023-07-03 14:44] LABS: INR 2.6 (0.8-1.2); PT - PROTHROMBIN TIME 27.4 secs (9.9-12.6)
== END 2023-07-03 12:43 | disposition home or self-care (01) ==
LOC: LAB.S 12:42
PROVIDERS: ATTEND Internal Medicine Clinical Cardiac Electrophysiology
DX: I48.91 Unspecified atrial fibrillation (principal)
CPT/HCPCS: 36415; 85610

== ENCOUNTER 2023-08-11 11:29 | Outpatient (CLI) | payer OTHER ==
[2023-08-11 14:46] LABS: INR 2.5 (0.8-1.2); PT - PROTHROMBIN TIME 26.5 secs (9.9-12.6)
== END 2023-08-11 11:30 | disposition home or self-care (01) ==
LOC: LAB.S 11:29
PROVIDERS: ATTEND Internal Medicine Clinical Cardiac Electrophysiology
DX: I48.91 Unspecified atrial fibrillation (principal)
CPT/HCPCS: 36415; 85610

== ENCOUNTER 2023-09-22 11:01 | Outpatient (CLI) | payer OTHER ==
[2023-09-22 16:10] LABS: INR 2.4 (0.8-1.2); PT - PROTHROMBIN TIME 24.7 secs (9.9-12.6)
== END 2023-09-22 11:02 | disposition home or self-care (01) ==
LOC: LAB.S 11:01
PROVIDERS: ATTEND Internal Medicine Clinical Cardiac Electrophysiology
DX: I48.91 Unspecified atrial fibrillation (principal)
CPT/HCPCS: 36415; 85610